=== PATIENT | male | born 1945 | race African-American/Black ===

== ENCOUNTER 2018-06-13 15:24 | Emergency (ER) | payer OTHER ==
[~2018-06-13] VITALS: Ht 195.6 cm; Wt 91.2 kg
[2018-06-13] MEDS ORDERED: ACETAMINOPHEN ES 500 MG TABLET ONE (15:46)
[2018-06-13] MEDS ORDERED: IBUPROFEN 400 MG TABLET ONE (15:46)
[2018-06-13] MEDS ORDERED: ACETAMINOPHEN ES 500 MG TABLET PO ONE (16:00)
[2018-06-13] MEDS ORDERED: IBUPROFEN 400 MG TABLET PO ONE (16:00)
--- NOTE | 2018-06-13 16:04 | NUR ---
PT BIB SELF,C/O R KNEE PAIN AND STIFFNESS. WAS AT URGENT CARE AND WAS ADVISED TO GO TO ED. ALERT AND ORIENTED X 4. ON ROOM AIR, BREATHING EVENLY AND UNLABORED. KEPT COMFROTABLE, WILL CONTINUE TO MONITOR ACCORDINGLY.
[2018-06-13] MEDS ORDERED: HYDROCODONE/APAP 5/325MG 1 EACH TABLET ONE (16:18)
[2018-06-13] MEDS ORDERED: HYDROCODONE/APAP 5/325MG 1 EACH TABLET PO ONE (16:30)
[2018-06-13] MEDS ORDERED: PROPOFOL 0 ML IV ONE (18:24)
[2018-06-13] MEDS ORDERED: PROPOFOL 200 MG/20 ML VIAL IV ONE (18:30)
[2018-06-13] MEDS ORDERED: PROPOFOL 20 ML IV ONE (18:37)
--- NOTE | 2018-06-13 18:40 | NUR ---
STARTED CONCIOUS SEDATION, IN NO APPARENT DISTRESS AT THIS TIME. IV LINE INITIATED WITH NS IFUSING KVO RATE. VITAL SIGNS WNL.
--- NOTE | 2018-06-13 18:45 | NUR ---
POST COIUS SEDATION BP: 137/84, R; 19, P: 63, 02 SAT 98% ON ROOM AIR. FOREST ECOLOGIST AT BEDSIDE FOR XRAY AND DR. PARSON LOOKED AT THE KNEE AND IN PLACED. WILL CONTINUE TO MONITOR ACCORDINGLY. PATIENT IS FULLY AWAKE AND ORIENTED TO HIS SURROUNDINGS.
--- NOTE | 2018-06-13 19:22 | NUR ---
ENDORSED TO ELDA RN FOR CHAS.
--- NOTE | 2018-06-13 19:23 | NUR ---
RECEIVED REPORT FROM CEASAR ALVARADO FOR CHAS. PT RESTING IN BED WITH NO S/S NO ACUTE DISTRESS NOTED. WILL CONTINUE TO MONITOR PT FOR SAFETY AND COMFORT.
--- NOTE | 2018-06-13 19:44 | NUR ---
Patient discharged to home in stable condition. Written and verbal after care instructions given. Patient verbalizes understanding of instruction.IV removed. Catheter intact and site benign. Pressure and 4x4 applied to site. No bleeding noted. PT PROVIDED WITH CRUTCHES. PT STATES HE DOES NOT NEED IT BUT WOULD LIKE TO HAVE A PAIR "JUST IN CASE". PT AMBULATED OUT WITH NO S/S OF DISTRESS NOTED. ALONGSIDE PT.
[2018-06-13 19:50] VITALS: BP 130/80
== END 2018-06-13 19:50 | disposition home or self-care (01) ==
LOC: ER 15:30
DX: S83.194A Other dislocation of right knee, initial encounter (principal); I10 Essential (primary) hypertension; R01.1 Cardiac murmur, unspecified; E11.9 Type 2 diabetes mellitus without complications; E78.00 Pure hypercholesterolemia, unspecified; X58.XXXA Exposure to other specified factors, initial encounter; Y93.89 Activity, other specified; Y92.89 Other specified places as the place of occurrence of the external cause; Y99.8 Other external cause status
CPT/HCPCS: 73564-TC; 73700-TC; G0500; J2704; J7030

== ENCOUNTER 2018-06-25 22:24 | Emergency (ER) | payer OTHER ==
[~2018-06-25] VITALS: Ht 195.6 cm; Wt 86.2 kg
--- NOTE | 2018-06-25 23:10 | NUR ---
BEDSIDE FOR EVAL
[2018-06-26] MEDS ORDERED: PROPOFOL 20 ML IV ONE (00:51)
[2018-06-26] MEDS ORDERED: FENTANYL PF 100MCG/2ML AMPUL ONE (00:51)
[2018-06-26] MEDS ORDERED: FENTANYL PF 100MCG/2ML AMPUL IV ONE (01:00)
[2018-06-26] MEDS ORDERED: PROPOFOL 1,000 MG/100 ML BOTTLE IV ONE (01:00)
[2018-06-26] MEDS ORDERED: IV NS 0.9% 1,000 ML BAG IV ONE (01:30)
--- NOTE | 2018-06-26 01:30 | NUR ---
CONSCIOUS SEDATION PERFORMED BY DR BENDER WITH RT BEDSIDE. SUCCESFUL R KNEE REDUCTION WITH NO COMPLICATIONS. PT'S KNEE IMOBILIZER IN PLACE. PT IS AAOX4. NO S/S OF ACUTE DISTRESS NOTED POST PROCEDURE.
[2018-06-26] MEDS ORDERED: IV NS 0.9% 250 ML IV ONE (02:30)
--- NOTE | 2018-06-26 03:19 | NUR ---
Patient discharged to home in stable condition. Written and verbal after care instructions given. Patient verbalizes understanding of instruction.IV removed. Catheter intact and site benign. Pressure and 4x4 applied to site. No bleeding noted. pt ambulated out with personal crutches with steady gait noted. no s/s of distress noted. alongside pt
[2018-06-26 03:21] VITALS: BP 164/96
== END 2018-06-26 03:22 | disposition home or self-care (01) ==
LOC: ER 22:25
DX: S83.194A Other dislocation of right knee, initial encounter (principal); I10 Essential (primary) hypertension; R01.1 Cardiac murmur, unspecified; E11.9 Type 2 diabetes mellitus without complications; X58.XXXA Exposure to other specified factors, initial encounter; Y93.89 Activity, other specified; Y92.89 Other specified places as the place of occurrence of the external cause; Y99.8 Other external cause status
CPT/HCPCS: 27550; 73564 ×2; 99152; 99285; A4606; J2704; J3010; J7040; G0500

== ENCOUNTER 2019-01-13 06:05 | Emergency (ER) | payer OTHER ==
[2019-01-13] MEDS ORDERED: ONDANSETRON HCL/PF 4 MG/2 ML VIAL ONE (06:53)
[2019-01-13] MEDS ORDERED: MORPHINE SULFATE INJ 4 MG/ML DISP.SYRIN ONE (06:53)
[2019-01-13] MEDS ORDERED: IV NS 0.9% 1,000 ML BAG IV ONE (07:00)
[2019-01-13] MEDS ORDERED: MORPHINE SULFATE INJ 2 MG/ML DISP.SYRIN IV ONE (07:00)
[2019-01-13] MEDS ORDERED: ONDANSETRON HCL/PF 4 MG/2 ML VIAL IVP ONE (07:00)
[2019-01-13] MEDS ORDERED: HYDROMORPHONE INJ 0.5 MG/0.5 ML SYRINGE IV ONE (07:30)
[2019-01-13] MEDS ORDERED: HYDROMORPHONE 1 MG/1 ML DISP.SYRIN ONE (07:39)
[2019-01-13] MEDS ORDERED: LORAZEPAM INJ 2 MG/ML VIAL ONE (07:54)
[2019-01-13] MEDS ORDERED: LORAZEPAM INJ 2 MG/ML VIAL IV ONE (08:00)
[2019-01-13] MEDS ORDERED: INSU300I (08:34)
[2019-01-13] MEDS ORDERED: LOSA100T31 PO (08:34)
[2019-01-13] MEDS ORDERED: PANT40TA4 PO (08:34)
[2019-01-13] MEDS ORDERED: ATOR10TA PO (08:34)
[2019-01-13] MEDS ORDERED: VERA180T11 PO (08:34)
== END 2019-01-13 11:27 | disposition short-term general hospital (02) ==
DX: K56.699 Other intestinal obstruction unspecified as to partial versus complete obstruction (principal); R11.10 Vomiting, unspecified; R01.1 Cardiac murmur, unspecified; E11.9 Type 2 diabetes mellitus without complications; I10 Essential (primary) hypertension; Z85.07 Personal history of malignant neoplasm of pancreas; Z98.890 Other specified postprocedural states; Z79.4 Long term (current) use of insulin
CPT/HCPCS: 36415; 74176; 80048; 80076; 83690; 85025; 96361; 96374; 96375; 99285; J1170; J2060; J2270; J2405; J7030